=== PATIENT | female | born 1970 | race Caucasian/White ===

== ENCOUNTER 2018-08-17 10:05 | Emergency (ER) | payer BC ==
[~2018-08-17] VITALS: Wt 90.0 kg
[2018-08-17] MEDS ORDERED: ALBUTEROL 0.083% (NEB) 2.5 MG/3 ML AMP NEB STA (10:18)
[2018-08-17] MEDS ORDERED: IPRATROPIUM (NEB) 0.5 MG/2.5 ML AMP NEB STA (10:18)
[2018-08-17] MEDS ORDERED: ALBU18HF INHALATION (11:19)
[2018-08-17] MEDS ORDERED: ALBU2.5V3 NEB (11:19)
[2018-08-17] MEDS ORDERED: BENZ-6 PO ×2 (11:21→11:25)
--- NOTE | 2018-08-17 11:24 | ERD ---
ER Documentation Chief Complaint Chief Complaint has asthma inhalers not helping, speaking i full sentences HPI 47-year-old female patient with a past medical history of asthma, diabetes pr esents to the ED stating that she has had a productive cough without any relief using her inhaler. States that she was coughing so much, she vomited phlegm. Patient is eating appropriately, tolerating oral intake. Denies any chest pain, abdominal pain, nausea, vomiting, diarrhea, neck stiffness. Taking control. Denies any recent traveling. ROS All systems reviewed and are negative except as per history of present illness. Medications Home Meds Active Scripts Azithromycin* (Zithromax*) 250 Mg Tablet, 250 MG PO .ZPACK DIRECTED, #6 TAB TAKE 500 MG (2 TABS) THE FIRST DAY THEN 250 MG (1 TAB) DAYS 2-5 Prov:LARISSA WOMACK PA-C 08/17/18 Benzonatate* (Tessalon Perle*) 100 Mg Capsule, 100 MG PO Q8H PRN for COUGH, #20 CAP Prov:LARISSA WOMACK PA-C 08/17/18 Albuterol Sulfate* (Ventolin HFA*) 18 Gm Hfa.aer.ad, 2 PUFF INHALATION Q4H, #1 INHALER Prov:LARISSA WOMACK PA-C 08/17/18 Albuterol Sulfate* (Albuterol Sulfate* Neb) 0.083%-3 Ml Neb, 2.5 MG NEB Q4 PRN for SHORTNESS OF BREATH, #30 EA Prov:LARISSA WOMACK PA-C 08/17/18 Allergies Allergies: Coded Allergies: No Known Allergy (Unverified , 08/17/18) PMhx/Soc History of Surgery: No Hx Respiratory Disorders: Yes (ASTHMA) Hx Cardiac Disorders: Yes (DIABETES MELLITUS) Hx Psychiatric Problems: No Hx Miscellaneous Medical Probl: No Hx Alcohol Use: No Hx Substance Use: No Hx Tobacco Use: No Smoking Status: Never smoker FmHx Family History: No diabetes, No coronary disease Physical Exam Vitals Vital Signs Date Temp Pulse Resp B/P (MAP) Pulse Ox O2 O2 Flow FiO2 Time Delivery Rate 08/17/18 76 18 99 21 10:44 08/17/18 98.1 73 18 137/78 99 10:09 (97) Physical Exam Const: [id number], well-nourished. In no acute distress. Head: Atraumatic, normocephalic Eyes: Normal Conjunctiva without injection. No purulent discharge. PERRL. EOMI ENT: Normal external ear. Ear canal without erythema. Tympanic membrane pearly burrows without effusion or bulging. Nasal canal clear with normal turbinates. Moist oropharynx without tonsillar exudates. Non-erythematous pharynx. Uvula midline. No drooling. No trismus. Neck: Full range of motion. No meningismus. No cervical lymphadenopathy. Resp: Clear to auscultation bilaterally. No wheezing, rhonchi, rales, or cr ackles. No accessory muscle use. No retractions. Cardio: Regular rate and rhythm. No murmurs, rubs or gallops. Abd: Soft, non tender, non distended. Normal bowel sounds. No palpable masses. No rebound tenderness. No guarding. Skin: No petechiae or rashes Back: No midline tenderness. No CVA tenderness. Ext: No cyanosis, or edema. Neur: Awake and alert. Psych: Normal Mood and Affect Results 24 hrs Laboratory Tests Test 08/17/18 10:39 POC Beta HCG, Qualitative NEGATIVE Current Medications Medications Dose Sig/Nicolas Start Time Status Last (Trade) Ordered Route PRN Stop Time Admin Dose Reason Admin Albuterol 5 mg ONCE STAT 08/17/18 DC 08/17/18 (Proventil NEB 10:18 08/17/18 10:38 0.083% (Neb)) 10:22 Ipratropium 1 mg ONCE STAT 08/17/18 DC 08/17/18 Check NEB 10:18 08/17/18 10:38 (Atrovent 10:22 0.02% (Neb)) Procedures/MDM 47-year-old female patient with past medical history of asthma presents to ED complaining of cough. Patient is afebrile and nontoxic-appearing. She given a breathing treatment consisting of albuterol, Atrovent with improvement of her symptoms. Patient is speaking in full sentences. No respiratory distress. PROCEDURE: Single view chest. CLINICAL INDICATION: Asthma exacerbation TECHNIQUE: Single view of the chest was obtained COMPARISON: None FINDINGS: There is no airspace consolidation or focal infiltrate. No pleural effusion or pneumothorax. Cardiac silhouette and mediastinal contours are unremarkable. Pulmonary vasculature appears normal. Regional bones are grossly unremarkable. IMPRESSION: No evidence of active cardiopulmonary disease. Patient likely has an asthma exacerbation. Low suspicion for atypical MN, pneumonia, pulmonary embolism, pneumothorax, cardiac tamponade, sinusitis, peritonsillar abscess, mastoiditis, Brandon's angina, retropharyngeal abscess, meningitis, sepsis or other emergent conditions. Patient's respiratory status has stabilized while in the department and is appropriate for outpatient work up. Exam and work up not consistent w/ impending respiratory failure or cardiovascular collapse. She has an appointment with her primary care physician tomorrow instructed patient to inquire about an asthma. And so it prevents any asthma flare ups. Diagnosis: Asthma with acute exacerbation Discharge medications: Zithromax, Tessalon Perles, Ventolin, Albuterol solution Follow up with primary care physician in 1-2 days. Instructed patient to return to the ED sooner for any worsening symptoms. Patient's questions were answered. Patient is hemodynamically stable. Patient understood and agreed with discharge plan. Patient discharged stable. Disclaimer: Inadvertent spelling and grammatical errors are likely due to EHR/dictation software use and do not reflect on the overall quality of patient care. Also, please note that the electronic time recorded on this note does not necessarily reflect the actual time of the patient encounter. Departure Diagnosis: Primary Impression: Asthma with acute exacerbation Asthma severity: mild Asthma persistence: intermittent Qualified Codes: J45.21 - Mild intermittent asthma with (acute) exacerbation Condition: Stable Patient Instructions: Asthma, Acute (Adult) Referrals: [facility] YOU HAVE RECEIVED A MEDICAL SCREENING EXAM AND THE RESULTS INDICATE THAT YOU DO NOT HAVE A CONDITION THAT REQUIRES URGENT TREATMENT IN THE EMERGENCY DEPARTMENT. FURTHER EVALUATION AND TREATMENT OF YOUR CONDITION CAN WAIT UNTIL YOU ARE SEEN IN YOUR DOCTORS OFFICE WITHIN THE NEXT 1-2 DAYS. IT IS YOUR RESPONSIBILITY TO MAKE AN APPOINTMENT FOR [facility]. IF YOU HAVE A PRIMARY DOCTOR --you should call your primary doctor and schedule an appointment IF YOU DO NOT HAVE A PRIMARY DOCTOR YOU CAN CALL OUR PHYSICIAN REFERRAL HOTLINE AT IF YOU CAN NOT AFFORD TO SEE A PHYSICIAN YOU CAN CHOSE FROM THE FOLLOWING [facility] [address] [facility]. [facility] [address] [facility] [address] [facility]. [facility] [address] [facility]. [facility] [address] [facility]. [facility]. [address] [facility]. [facility] YOU HAVE RECEIVED A MEDICAL SCREENING EXAM AND THE RESULTS INDICATE THAT YOU DO NOT HAVE A CONDITION THAT REQUIRES URGENT TREATMENT IN THE EMERGENCY DEPARTMENT. FURTHER EVALUATION AND TREATMENT OF YOUR CONDITION CAN WAIT UNTIL YOU ARE SEEN IN YOUR DOCTORS OFFICE WITHIN THE NEXT 1-2 DAYS. IT IS YOUR RESPONSIBILITY TO MAKE AN APPOINTMENT FOR [facility]-UP CARE. IF YOU HAVE A PRIMARY DOCTOR --you should call your primary doctor and schedule and appointment IF YOU DO NOT HAVE A PRIMARY DOCTOR YOU CAN CALL OUR PHYSICIAN REFERRAL HOTLINE AT . IF YOU CAN NOT AFFORD TO SEE A PHYSICIAN YOU CAN CHOSE FROM THE FOLLOWING [facility] INSTITUTIONS: [facility] [address] [place] [address] [facility] [address] [place], [place] [id number] [place] [address] [address] [place] [address] [facility] URGENT CARE/SPECIALTIES Additional Instructions: Call your primary care doctor TOMORROW for an appointment during the next 2-3 days.See the doctor sooner or return here if your condition worsens before your appointment time. LARISSA WOMACK PA-C Aug 17, 2018 11:24
[2018-08-17] MEDS ORDERED: AZIT250T PO (11:25)
[2018-08-17 11:31] VITALS: BP 125/73; PULSE 74; RESP 19
== END 2018-08-17 11:32 | disposition home or self-care (01) ==
LOC: FTE 10:05
DX: J45.21 Mild intermittent asthma with (acute) exacerbation (principal); E11.9 Type 2 diabetes mellitus without complications
CPT/HCPCS: 71045; 81025; 94664

== ENCOUNTER 2018-09-01 02:41 | Observation (INO) | payer BC ==
[2018-09-01] VITALS (8 sets, daily range): BP systolic 127–135; BP diastolic 67–74; PULSE 90–99; RESP 18–20; Ht 157.5 cm; Wt 104.3 kg
[~2018-09-01] VITALS: Ht 157.5 cm; Wt 104.3 kg
[~2018-09-01 02:41] MED LIST: ALBU18HF INHALATION; ALBU2.5V3 NEB; AZIT250T PO; BENZ-6 PO
--- NOTE | 2018-09-01 03:00 | ERD ---
ER Documentation Chief Complaint Chief Complaint Pt reports asthma attack started at 0100 HPI The patient is a 47-year-old female, presenting to the ER because of acute dyspnea that began around 1 AM, and not relief with albuterol treatment. She had similar symptoms previously, she denies fever, chills, neck pain, abdominal pain, vomiting. She does not smoke, drink Past medical history: Asthma, diabetes mellitus Past surgical history: None ROS All systems reviewed and are negative except as per history of present illness. Medications Home Meds Active Scripts Benzonatate* (Tessalon Perle*) 100 Mg Capsule, 100 MG PO Q8H PRN for COUGH, #20 CAP Prov:LARISSA WOMACK-C 08/17/18 Albuterol Sulfate* (Ventolin HFA*) 18 Gm Hfa.aer.ad, 2 PUFF INHALATION Q4H, #1 INHALER Prov:LARISSA WOMACK-C 08/17/18 Albuterol Sulfate* (Albuterol Sulfate* Neb) 0.083%-3 Ml Neb, 2.5 MG NEB Q4 PRN for SHORTNESS OF BREATH, #30 EA Prov:LARISSA WOMACK-C 08/17/18 Discontinued Scripts Azithromycin* (Zithromax*) 250 Mg Tablet, 250 MG PO .ZPACK DIRECTED, #6 TAB TAKE 500 MG (2 TABS) THE FIRST DAY THEN 250 MG (1 TAB) DAYS 2-5 Prov:LARISSA WOMACK-C 08/17/18 Allergies Allergies: Coded Allergies: No Known Allergy (Unverified , 09/01/18) PMhx/Soc History of Surgery: No Hx Respiratory Disorders: Yes (ASTHMA) Hx Cardiac Disorders: Yes (DIABETES MELLITUS) Hx Psychiatric Problems: No Hx Miscellaneous Medical Probl: No Hx Alcohol Use: No Hx Substance Use: No Hx Tobacco Use: No Physical Exam Vitals Vital Signs Date Temp Pulse Resp B/P (MAP) Pulse Ox O2 O2 Flow FiO2 Time Delivery Rate 09/01/18 97 19 133/76 97 Nasal 2.0 05:35 (95) Cannula 09/01/18 88 28 100 Nasal 2.0 03:21 Cannula 09/01/18 Nasal 2.0 03:09 Cannula 09/01/18 Nasal 2 03:08 Cannula 09/01/18 98.9 102 28 168/96 94 02:54 (120) Physical Exam Const: No acute distress. Head: Atraumatic. Eyes: Normal Conjunctiva. ENT: Normal External Ears, Nose and Mouth. Neck: Full range of motion. No meningismus. Resp: Tachypneic, bilateral expiratory wheezes Cardio: Regular rate and rhythm Abd: Soft, non distended, normal bowel sounds, non tender. Skin: No petechiae or rashes. Back: No midline or flank tenderness. Ext: No cyanosis, or edema. Neur: Awake and alert. No focal deficit Psych: Normal Mood and Affect. Results 24 hrs Laboratory Tests Test 09/01/18 03:05 Bedside Glucose 147 mg/dL Current Medications Medications Dose Sig/Nicolas Start Time Status Last (Trade) Ordered Route PRN Stop Time Admin Dose Reason Admin 5 mg ONCE STAT 09/01/18 DC 09/01/18 Levalbuterol INH 03:04 03:20 (Xopenex 09/01/18 03:06 Neb) Ipratropium 1.5 mg ONCE STAT 09/01/18 DC 09/01/18 [place] INH 03:04 03:20 (Atrovent 09/01/18 03:06 0.02% (Neb)) 125 mg ONCE STAT 09/01/18 DC 09/01/18 Methylprednis IV 03:04 03:30 olone Sodium 09/01/18 03:06 Succinate (Solu-Medrol) Magnesium 50 ml @ 25 ONCE STAT 09/01/18 DC 09/01/18 Sulfate mls/hr IVPB 03:04 03:30 09/01/18 05:03 Procedures/[place] [address] Radiology Main Line: [phone] DIAGNOSTIC IMAGING REPORT Patient: ROWDY CHRISTINE : 1970 Age: 47 Sex: F MR #: [id number] DOS: 09/01/18 0304 Ordering MD: CIELO ROGERS MD Location: E/R Room/Bed: PROCEDURE: XR Chest. CLINICAL INDICATION: Asthma exacerbation TECHNIQUE: AP Portable chest. COMPARISON: CHEST 08/17/2018 FINDINGS: The cardiomediastinal silhouette is normal. The aorta is normal. No focal consolidation, pleural effusion or pneumothorax is seen. There is mild bibasilar atelectasis. The osseous structures are intact. IMPRESSION: No radiographic evidence of acute cardiopulmonary disease. [facility] Morro Jensen Physician Date Time Electronically viewed and signed by Morro Jensen Physician on 09/01/2018 03:53 CS/ CC: CIELO ROGERS MD [id number] MEDICAL MAKING DECISION: The patient is a 47-year-old female, presenting with acute asthma exacerbation, was treated with Xopenex 5 mg, Atrovent 1.5 mg continuous nebulizer over one hour, Solu Medrol 125 mg IV and magnesium sulfate 2 g IV for acute asthma exacerbation with mild to moderate response, however she is still tachypneic and wheezing and O2 saturation is only 93% on room air, however she responded to supplemental oxygen. She would need to be admitted for further evaluation and treatment. The differential diagnoses considered include but are not limited to asthma, COPD, pneumonia, pulmonary embolus, pleural effusion, congestive heart failure. Departure Diagnosis: Primary Impression: Asthma with acute exacerbation Condition: Stable Comments I discussed the findings with the patient. I discussed the patient with the hospitalist Dr Oden at 5:20 AM. who was made aware of the lab, the treatment, the patient condition. The patient is admitted to Tel Obs Disclaimer: Inadvertent spelling and grammatical errors are likely due to EHR/dictation software use and do not reflect on the overall quality of patient care. Also, please note that the electronic time recorded on this note does not necessarily reflect the actual time of the patient encounter. CIELO ROGERS MD Sep 01, 2018 03:00
[2018-09-01] MEDS ORDERED: MAGNESIUM SULFATE 2 GM/50 ML 50 ML IVPB STA (03:04)
[2018-09-01] MEDS ORDERED: IPRATROPIUM (NEB) 0.5 MG/2.5 ML AMP INH STA (03:04)
[2018-09-01] MEDS ORDERED: LEVALBUTEROL (NEB) 1.25 MG/0.5 ML AMP INH STA (03:04)
[2018-09-01] MEDS ORDERED: METHYLPREDNISOLONE 125 MG INJ IV STA (03:04)
--- NOTE | 2018-09-01 05:45 | HP ---
Date/Time of Note Date/Time of Note DATE: 09/01/18 TIME: 05:34 Assessment/Plan VTE Prophylaxis Pharmacological prophylaxis: heparin Assessment/Plan Hospital Course 47 yo female with h/o DM and asthma presents with SOB. Most likely this is acute asthma exacerbation Acute asthma exacerbation: - Continue bronchodilators - Systemic steroids - Only using albuterol as outpatient. Will need inhaled steroid, LABA/LAMA at discharge Subjective feeling of airway obstruction: - CT neck to evaluate, possible thyromegaly - Direct laryngoscopy would be nice to evaluate for vocal cord dysfunction DMII; - Basal/bolus insulin Discharge to home when stable Results 24hrs Laboratory Tests Test 09/01/18 03:05 Bedside Glucose 147 HPI/ROS Admit Date/Time Admit Date/Time Hx of Present Illness 47 yo female wtih h/o ashtma presents with SOB Patient has been ill for about a month. Illness started with cough. Then progressed to wheezing and SOB. She came to ED 08/17 and received prednisone course. This helped briefly. Symptoms then recurred. Over past day or so have become severe. Came to ED and given continuous nebulizer treatment and improved. However still mildly hypoxic Patient also reports feeling fullness in her neck that affects her breathing, feels like her airway is blocked. Particularly has this sensation at night. No fevers, chills. No edema. No CP. PMH/Family/Social Past Medical History Asthma Medical History: diabetes Coded Allergies: No Known Allergy (Unverified , 09/01/18) Past Surgical History Past Surgical Hx: no surgical history Family History Significant Family History: no pertinent family hx Social History Alcohol Use: none Smoking Status: Never smoker Drug Use: none Exam/Review of Systems Vital Signs Vitals Vital Signs Date Temp Pulse Resp B/P (MAP) Pulse Ox O2 O2 Flow FiO2 Time Delivery Rate 09/01/18 88 28 100 Nasal 2.0 03:21 Cannula 09/01/18 98.9 168/96 02:54 (120) Exam Exam Resting comfortably Obese female AOx3 Lungs clear, nonlabored No stridor RRR, no m/r/g Flat neck veins Abdomen obese, soft, nt, nd Ext warm without edema DREA GONZALEZ MD Sep 01, 2018 05:45
[2018-09-01] MEDS ORDERED: NACL 0.9% 3 ML SYG IV SCH (06:00)
[2018-09-01] MEDS ORDERED: DEXTROSE 50% 50 ML SYRINGE IV PRN ×2 (06:00)
[2018-09-01] MEDS ORDERED: HYDROCODONE/APAP (5/325) TAB PO PRN (06:00)
[2018-09-01] MEDS ORDERED: GLUCOSE GEL 15 GRAM TUBE PO PRN ×2 (06:00)
[2018-09-01] MEDS ORDERED: GLUCOSE GEL 15 GRAM TUBE BUCCAL PRN (06:00)
[2018-09-01] MEDS ORDERED: GLUCAGON 1 MG INJ IM PRN (06:00)
[2018-09-01] MEDS: ALBUTEROL/IPRATROPIUM (NEB) 3 ML AMP HHN SCH ×2 (07:43→13:03)
[2018-09-01] MEDS: INSULIN ASPART [NOVOLOG] 3 ML PEN SC SCH ×6 (08:25→17:19)
[2018-09-01] MEDS ORDERED: SOD CHLORIDE 0.9% 100 ML ONE (08:56)
[2018-09-01] MEDS ORDERED: IOHEXOL 100 ML ONE (08:56)
[2018-09-01] MEDS ORDERED: predniSONE 20 MG TAB PO SCH (09:00)
[2018-09-01] MEDS ORDERED: ENOXAPARIN 30 MG/0.3 ML SYG SC SCH (09:00)
[2018-09-01] MEDS ORDERED: PRED20TA PO (11:49)
--- NOTE | 2018-09-01 13:58 | PDOCDIS ---
Discharge Instructions DIAGNOSIS Discharge Diagnosis Asthma exacerbation CONDITION [id number] Patient Condition: [id number] Good HOME CARE INSTRUCTIONS: [id number] Diet Instructions: [id number] Regular ACTIVITY: [id number] Activity Restrictions: Leerm9m No Restrictions FOLLOW UP/APPOINTMENTS Follow-up Plan 1. Finish course of prednisone as prescribed. Continue albuterol as needed for shortness of breath. 2. See your primary care doctor in 1-2 weeks. 3. Return to the emergency room if you have worsening shortness of breath at rest not relieved by your albuterol inhaler. AQUILINO EDMONDSON MD Sep 01, 2018 13:58
--- NOTE | 2018-09-01 19:29 | DS ---
Date/Time of Note Date/Time of Note DATE: 09/01/18 TIME: 19:27 Discharge Summary Admission/Discharge Info Admit Date/Time Sep 01, 2018 at 05:19 Discharge Date/Time Sep 01, 2018 at 19:20 Discharge Diagnosis Asthma exacerbation Patient Condition: Good Consults None Procedures None Hx of Present Illness 47 yo female wt h/o ashtma presents with SOB Patient has been ill for about a month. Illness started with cough. Then progressed to wheezing and SOB. She came to ED 08/17 and received prednisone course. This helped briefly. Symptoms then recurred. Over past day or so have become severe. Came to ED and given continuous nebulizer treatment and improved. However still mildly hypoxic Patient also reports feeling fullness in her neck that affects her breathing, feels like her airway is blocked. Particularly has this sensation at night. No fevers, chills. No edema. No CP. Hospital Course Patient was monitored on telemetry overnight. There were no major cardiac events. She remained comfortably on room air. In the morning she did have mild wheezing but did not require frequent albuterol. She felt much better after steroids. CTPA was negative for PE; CT neck was unremarkable. Will discharge with course of prednisone. Home Meds Active Scripts Prednisone* (Prednisone*) 20 Mg Tab, 40 MG PO DAILY, #5 TAB Prov:AQUILINO EDMONDSON MD 09/01/18 Benzonatate* (Tessalon Perle*) 100 Mg Capsule, 100 MG PO Q8H PRN for COUGH, #20 CAP Prov:LARISSA WOMACK PA-C 08/17/18 Albuterol Sulfate* (Ventolin HFA*) 18 Gm Hfa.aer.ad, 2 PUFF INHALATION Q4H, #1 INHALER Prov:LARISSA WOMACK PA-C 08/17/18 Albuterol Sulfate* (Albuterol Sulfate* Neb) 0.083%-3 Ml Neb, 2.5 MG NEB Q4 PRN for SHORTNESS OF BREATH, #30 EA Prov:LARISSA WOMACK PA-C 08/17/18 Discontinued Scripts Azithromycin* (Zithromax*) 250 Mg Tablet, 250 MG PO .ZPACK DIRECTED, #6 TAB TAKE 500 MG (2 TABS) THE FIRST DAY THEN 250 MG (1 TAB) DAYS 2-5 Prov:LARISSA WOMACK PA-C 08/17/18 Follow-up Plan 1. Finish course of prednisone as prescribed. Continue albuterol as needed for shortness of breath. 2. See your primary care doctor in 1-2 weeks. 3. Return to the emergency room if you have worsening shortness of breath at rest not relieved by your albuterol inhaler. Primary Care Provider Not On Staff Doctor Time spent on discharge: > 30 minutes Pending Labs Laboratory Tests Test 09/01/18 03:05 09/01/18 06:44 09/01/18 08:04 09/01/18 11:55 Bedside 147 189 207 Glucose mg/dL (70-220) mg/dL (70-220) mg/dL (70-220) White Blood 12.0 Count 10^3/ul (4.8-1 0.8) Red Blood 4.90 Count 10^6/ul (4.20- 5.40) Hemoglobin 11.9 g/dl (12.0-16. 0) Hematocrit 38.9 % (37.0-47.0) Mean 79.4 Corpuscular fl (82.0-101.0 Volume ) Mean 24.3 Corpuscular pg (29.0-33.0) Hemoglobin Mean 30.6 Corpuscular g/dl (32.0-37. Hemoglobin Conc 0) ent Red Cell 14.1 Distribution % (11.5-14.5) Width Platelet Count 359 10^3/UL (140-4 15) Mean Platelet 11.0 Volume fl (7.4-10.4) Immature 0.800 Granulocytes % % (0.001-0.429 ) Neutrophils % 84.9 % (39.0-77.0) Lymphocytes % 7.7 % (15.0-51.0) Monocytes % 2.6 % (0.0-11.0) Eosinophils % 3.3 % (0.0-7.0) Basophils % 0.7 % (0.0-2.0) Nucleated Red 0.0 Blood Cells % /100WBC (0.0-0 .0) Immature 0.090 Granulocytes # 10^3/ul (0.0-0 .031) Neutrophils # 10.2 10^3/ul (1.6-7 .5) Lymphocytes # 0.9 10^3/ul (0.8-2 .9) Monocytes # 0.3 10^3/ul (0.3-0 .9) Eosinophils # 0.4 10^3/ul (0.0-0 .5) Basophils # 0.1 10^3/ul (0.0-0 .1) Nucleated Red 0.0 Blood Cells # 10^3/ul (0.0-0 .0) Sodium Level 142 mmol/L (135-14 4) Potassium 3.9 Level mmol/L (3.5-5. 1) Chloride Level 107 mmol/L (97-110 ) Carbon Dioxide 23 Level mmol/L (21-31) Anion Gap 12 (5-13) Blood Urea 9 mg/dl (7-20) Nitrogen Creatinine 0.60 mg/dl (0.44-1. 00) Est Glomerular > 60 Filtrat mL/min (>60) Rate mL/min Glucose Level 220 mg/dl (70-220) Calcium Level 9.8 mg/dl (8.4-10. 2) Test 09/01/18 17:06 Bedside 202 Glucose mg/dL (70-220) AQUILINO EDMONDSON MD Sep 01, 2018 19:29
[2018-09-01] MEDS ORDERED: INSULIN GLARGINE [LANTus] (100 UNITS/ML) SYG SC SCH (20:00)
== END 2018-09-01 19:20 | disposition home or self-care (01) ==
LOC: E/R 02:41 → 6WM 05:19
PROVIDERS: ADMIT Internal Medicine; ATTEND Internal Medicine
DX: J45.901 Unspecified asthma with (acute) exacerbation (principal); R06.02 Shortness of breath; E11.9 Type 2 diabetes mellitus without complications; Z79.4 Long term (current) use of insulin
CPT/HCPCS: 70491; 71045; 71275; 80048; 82962; 85025; 94640; 94644; 94664; G0378; J1650; J1815; J2930; J3475; J7512; Q9967